=== PATIENT | female | born 1995 | race Caucasian/White ===

== ENCOUNTER → 2017-02-11 | Outpatient (CLI) | payer BC ==
[~2017-02-11] MED LIST: BIRTH CONTROL; PEPCID 20MG TAB20 MG PO; ZOFRAN 4MG T4 MG/TAB PO
[2017-02-11 14:36] LABS: BASO % 0.4 % (0.0-2.0); EOS # 0.2 (0.0-0.7); EOS % 2.1 % (0-4.0); GRAN # 5.9 (1.4-6.5); GRAN % 76.9 % (42.2-75.2); HEMATOCRIT 43.9 % (37.0-47.0); HEMOGLOBIN 14.6 g/dl (12.5-16.0); LYMPH # 0.8 (1.2-3.4); LYMPH % 10.5 % (20.0-51.0); MEAN CELL VOLUME 86 fl (80.0-100.0); MEAN CORPUSCULAR HEMOGLOBIN 29 pg (27.0-31.0); MEAN CORPUSCULAR HGB CONC 33 g/dl (33.0-37.0); MEAN PLATELET VOLUME 9.3 fl (7.4-10.4); MONO # 0.7 (0.1-0.6); MONO % 9.6 % (1.7-9.3); PLATELET COUNT 191 K/mm3 (130-400); RED BLOOD COUNT 5.08 M/mm3 (4.10-5.30); WHITE BLOOD COUNT 7.7 K/mm3 (4.8-10.8)
[2017-02-11 14:54] LABS: CALCIUM 8.8 mg/dL (8.4-10.2); CREATININE, serum 0.9 mg/dL (0.52-1.25); POTASSIUM 3.6 mmol/L (3.4-5.0)
== END ==
LOC: COL.LAB 14:02
DX: L03.114 Cellulitis of left upper limb (principal)

== ENCOUNTER 2020-01-05 20:39 | Emergency (ER) | payer BC ==
[~2020-01-05] VITALS: Ht 170.2 cm; Wt 125.0 kg
[2020-01-05 20:47] VITALS: BP 127/82; TEMP 98.7
[2020-01-05] MEDS ORDERED: AMOXICILLIN 8751 TAB PO (22:27)
[2020-01-05 22:45] VITALS: PULSE 78
== END 2020-01-05 23:00 | disposition home or self-care (01) ==
LOC: COL.ER 20:39
DX: S61.431A Puncture wound without foreign body of right hand, initial encounter (principal); S61.411A Laceration without foreign body of right hand, initial encounter; Z88.1 Allergy status to other antibiotic agents; W54.0XXA Bitten by dog, initial encounter; Y92.009 Unspecified place in unspecified non-institutional (private) residence as the place of occurrence of the external cause

== ENCOUNTER → 2020-01-14 | Outpatient (CLI) | payer BC ==
[~2020-01-14] MED LIST changes: +AMOXICILLIN 8751 TAB PO
[2020-01-14 16:54] VITALS: BP 116/79; PULSE 82; TEMP 98.5
== END ==
LOC: COL.ER 16:43
DX: Z48.02 Encounter for removal of sutures (principal)

== ENCOUNTER → 2020-03-31 | Outpatient (CLI) | payer BC | LOC: COL.RAD | DX: K76.0 Fatty (change of) liver, not elsewhere classified (principal) ==

== ENCOUNTER 2024-01-11 04:15 | Emergency (ER) | payer OTHER ==
[~2024-01-11] VITALS: Ht 172.7 cm; Wt 140.9 kg
[2024-01-11 04:19] VITALS: BP 143/94; PULSE 94; TEMP 98
[2024-01-11] MEDS ORDERED: Polymyxin B/Trimethoprim Ophth Soln 10 ML BOTTLE OP ONE (04:45)
[2024-01-11] MEDS ORDERED: Amoxicillin/Clavulanate K+ 875/125 MG TAB PO ONE (04:45)
[2024-01-11] MEDS ORDERED: AMOXICILLIN 8751 TAB PO (04:51)
== END 2024-01-11 05:44 | disposition home or self-care (01) ==
LOC: COL.ER 04:15
DX: H10.9 Unspecified conjunctivitis (principal); L03.213 Periorbital cellulitis; Z88.1 Allergy status to other antibiotic agents